=== PATIENT | female | born 1955 | race Caucasian/White ===

== ENCOUNTER → 2017-06-08 | Outpatient (CLI) | payer OTHER ==
--- NOTE | 2017-06-08 14:19 | XCELERA REPORT ---
[address] [address] Lower Extremity Venous Evaluation Name: FLORY CASE Age: 62 yrs Gender: Female : 1955 Patient Status: Outpatient Patient Location: Study Date: 06/08/2017 01:44 PM Procedure: Color flow and duplex imaging of the veins of the left lower extremity as well as the right Common Femoral vein. Reason For Study: LEFT KNEE AND CALF PAIN Ordering Physician: PAVITHRA HODGE Performed By: Servando Bailon Right Sided Venous Evaluation The right common femoral vein is fully compressible. Spontaneous and phasic flow is present in the right common femoral vein. Left Sided Venous Evaluation Normal vessel filling wall to wall, compression and augmentation as well as Colour flow down to the infrageniculate veins. Critical Findings Called in to Dr Hodge at 1412. Interpretation Summary No duplex evidence of DVT or obstruction in the left lower extremity nor in the right Common Femoral vein. : PAVITHRA HODGE > Dominic George
--- NOTE | 2017-06-08 14:23 | XCELERA REPORT ---
[address] [address] Lower Extremity Arterial Evaluation Name: FLORY CASE Age: 62 yrs Gender: Female : 1955 Patient Status: Outpatient Patient Location: Study Date: 06/08/2017 01:22 PM Procedure: A color flow and duplex scan of the lower extremity arteries was performed on the left with velocity and waveform anaylsis. Reason For Study: LEFT KNEE AND CALF PAIN Ordering Physician: PAVITHRA HODGE Performed By: Servando Bailon Measurements and Calculations Right Left OR MANAGER PSV 211.0 cm/sec Prox PFA PSV -108.2 cm/sec Dist SFA PSV -154.0 cm/sec Dist Pop A PSV 88.2 cm/sec Dist JARED PSV 125.7 cm/sec Dist CARGO MATE PSV 123.6 cm/sec Dk Pedis PSV 89.9 cm/sec Left Side Arterial Evaluation Normal velocity and triphasic waveforms noted from the Common Femoral artery to the infrageniculate vessels. 0% stenosis noted. Ankle Brachial index was not done. Interpretation Summary No hemodynamically significant lesions noted in the left lower extremity arteries, on duplex imaging, at rest. : PAVITHRA HODGE > Dominic George
== END ==
LOC: SP 12:59
PROVIDERS: ATTEND Family Medicine
DX: M25.562 Pain in left knee (principal)
CPT/HCPCS: 93926; 93971